=== PATIENT | female | born 1980 | race African-American/Black ===

== ENCOUNTER 2017-03-19 07:54 | Outpatient (CLI) | payer OTHER ==
--- NOTE | 2017-03-19 10:38 | ULT ---
ABDOMINAL ULTRASOUND: History: Abdominal pain. 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 Comparison: CT 03-10-15, abdominal ultrasound 02-22-16 at [facility], as well as ultrasound exami nation performed at [facility] 08-30-15. FINDINGS: Real-time imaging of the upper abdomen demonstrates a normal appearing gallbladder. The common duct is 3 mm. Visualized liver parenchyma is unremarkable. Pancreas is partially obscured. Right and left kidneys are normal in size and not obstructed. Abdominal aorta and IVC regions are unremarkable. There is a hypoechoic area involving the more posterior aspect of the spleen. It measures 2.5 cm in size. This area is different in appearance than it has been on previous ultrasounds. On the [facility] ultrasound there is an approximately 7 mm cyst directly adjacent to an approximately 2.3 x 2 .6 cm echogenic area which was felt to possibly represent scar related to the splenic cyst resection . The density seen on the current study appears to be in the same location as that echogenic area. O n the 08-30-15 ultrasound examination the more cystic portion of this area only measured 1.4 cm in ma ximum dimension. It appears to have slightly increased in size although what may be happening is jono t echogenic area was related to some blood clot which is slowly becoming more cystic in nature. IMPRESSION: 1. Change in character in the hypoechoic area within the spleen probably representing a complex sple jacob cyst. The area was very echogenic on an ultrasound examination done at [facility] but is no w more hypoechoic. I suspect that this may have represented an area of hematoma related to the surgi ying resection of the large splenic cyst and what we are observing is slow lysis of the hematoma whic h is becoming more cystic in nature with time. POS: [facility]
== END 2017-03-19 07:55 | disposition home or self-care (01) ==
LOC: ULT 07:54
PROVIDERS: ATTEND Internal Medicine Gastroenterology
DX: D73.89 Other diseases of spleen (principal); R10.12 Left upper quadrant pain
CPT/HCPCS: 76700

== ENCOUNTER 2017-04-04 08:14 | Outpatient (CLI) | payer OTHER ==
--- NOTE | 2017-04-04 12:47 | CT ---
CT ABDOMEN WITH IV CONTRAST: INDICATIONS: Follow up cyst, status post cyst removal. COMPARISON: Prior CT evaluation, dated 03/10/2015. Comparisons were also made with a prior ultrasound evaluatio n of the abdomen, dated 03/19/2017. FINDINGS: There is a heterogeneously enhancing 8 mm lesion within segment 5 of the right hepatic lobe on image 17 of series 2. This is likely reflective of a hyperenhancing lesion seen on the comparison examin ation of 03/10/2015, measuring 7 mm on image 18 of series 2. This is lightly reflective of a flash filling hemangioma. The previously seen cyst is no longer present. There is some irregularity invo lving the superior pole of the spleen, likely related to a cortical defect from the splenic resectio n site. The pancreas and adrenal glands are normal appearing. The kidneys are normal appearing. No free fluid or enlarged lymph nodes are evident. There is a fat-containing umbilical hernia. No acute osseous abnormality is evident. IMPRESSION: 1. Resolution of the previously seen large superior pole splenic cyst. Slight cortical irregularit y involves the superior pole of the cyst, likely related to the resection site. 2. Partially enhancing hypoechoic lesion within the anterior aspect of the right hepatis lobe withi n segment 5, which likely corresponds to a hyperenhancing lesion seen on 03/10/2015 and is reflectiv e of a hemangioma. This is felt to be stable in size since that exam. 3. Fat-containing umbilical hernia. POS: [facility]
== END 2017-04-04 08:15 | disposition home or self-care (01) ==
LOC: CT 08:14
PROVIDERS: ATTEND Internal Medicine Gastroenterology
DX: D73.89 Other diseases of spleen (principal)
CPT/HCPCS: 74160

== ENCOUNTER 2019-02-05 17:03 | Inpatient (IN) | payer OTHER ==
[2019-02-05] MEDS ORDERED: Betamet Acet/Betamet Na Ph 30 MG/5 ML VIAL ONE (17:41)
[2019-02-05 18:01] VITALS: BMI 39.3
[2019-02-05 18:02] LABS: #Eosinphils 0.1 thou/uL (0.0-0.7); #Lymphocytes 1.6 thou/uL (1.20-3.40); #Monocytes 0.8 thou/uL (0.11-0.59); #Neutrophils 6.4 thou/uL (1.40-6.50); %Basophils 0.5 % (0.0-1.0); %Eosinophils 0.7 % (0.0-10.0); %Lymphocytes 18.1 % (21.0-51.0); %Monocytes 8.5 % (0.0-10.0); %Neutrophils 72.2 % (42.0-75.0); Hemoglobin 13.7 g/dL (12.0-16.0); Mean Corpuscular HGB CONC 34.4 g/dL (32.0-36.0); Mean Corpuscular Hemoglobin 30.3 pg (27.0-31.0); Mean Corpuscular Volume 87.9 fL (78.0-98.0); Mean Platelet Volume 9.5 fL (7.4-10.4); Platelet Count 140 thou/uL (130-400); RBC Distribution Width 13.4 % (11.5-14.5); Red Blood Cell (RBC) Count 4.53 mill/uL (4.20-5.40); White Blood Cell (WBC) Count 8.9 thou/uL (4.8-10.8)
[2019-02-05 18:26] LABS: Uric Acid 5.1 mg/dL (2.6-6.0)
[2019-02-05 18:35] LABS: Creatinine, Urine 36.69 mg/dL (47-110)
[2019-02-05] MEDS ORDERED: Promethazine HCl 25 MG/ML VIAL IM PRN (19:28)
[2019-02-05] MEDS ORDERED: Butorphanol Tartrate 1 MG/ML VIAL SLOW IVP PRN (19:28)
[2019-02-05] MEDS ORDERED: hydrALAZINE 20 MG/ML VIAL SLOW IVP PRN (19:28)
[2019-02-05] MEDS ORDERED: Acetaminophen 500 MG TAB PO PRN (19:28)
[2019-02-05] MEDS ORDERED: Zolpidem Tartrate 5 MG TAB PO PRN (19:28)
[2019-02-05] MEDS ORDERED: Ondansetron PF 4 MG/2 ML Vial IVP PRN (19:28)
[2019-02-05] MEDS ORDERED: Calcium Gluc 4.6 MEQ/10 ML (100 MG/ML) SLOW IVP PRN (19:28)
[2019-02-05 22:41] LABS: Hemoglobin 14.5 g/dL (12.0-16.0); Mean Corpuscular Hemoglobin 30.9 pg (27.0-31.0); Mean Corpuscular Volume 88.3 fL (78.0-98.0); Mean Platelet Volume 9.9 fL (7.4-10.4); Platelet Count 144 thou/uL (130-400); RBC Distribution Width 13.5 % (11.5-14.5); Red Blood Cell (RBC) Count 4.69 mill/uL (4.20-5.40)
[2019-02-05 23:20] LABS: HBSAg Index 0.17 S/CO (0-0.99); Hep B Surf Ag Non-Reactive S/CO (NonReactive); Syphilis Antibody Nonreactive (Nonreactive); Syphilis Antibody Index 0.04 S/CO (<1.00 Non-Reactive)
[2019-02-06 11:59] LABS: #Eosinphils 0.1 thou/uL (0.0-0.7); #Lymphocytes 1.2 thou/uL (1.20-3.40); #Monocytes 0.4 thou/uL (0.11-0.59); #Neutrophils 12.8 thou/uL (1.40-6.50); %Eosinophils 0.5 % (0.0-10.0); %Lymphocytes 8.4 % (21.0-51.0); Mean Corpuscular HGB CONC 35.1 g/dL (32.0-36.0); Mean Corpuscular Hemoglobin 30.9 pg (27.0-31.0); Mean Platelet Volume 9.5 fL (7.4-10.4); Platelet Count 151 thou/uL (130-400); RBC Distribution Width 13.2 % (11.5-14.5); Red Blood Cell (RBC) Count 4.54 mill/uL (4.20-5.40); White Blood Cell (WBC) Count 14.5 thou/uL (4.8-10.8)
[2019-02-06] MEDS ORDERED: Penicillin G Potassium 5 MILL.UNITS in Sodium Chloride 0.9% 100 ML IVPB SCH (13:15)
[2019-02-06] MEDS: Labetalol 100 MG TAB PO SCH ×2 (14:59→22:59)
[2019-02-06] MEDS: Lactated Ringer's 1,000 ML IV SCH ×2 (15:00→23:08)
[2019-02-06] MEDS: Misoprostol 100 MCG TAB VAG SCH ×3 (15:02→21:07)
[2019-02-06] MEDS ORDERED: Penicillin G Potassium 2.5 MILL.UNITS in Sodium Chloride 0.9% 50 ML IVPB SCH (17:00)
[2019-02-06] MEDS: Betamet Acet/Betamet Na Ph 30 MG/5 ML VIAL IM SCH (18:00)
--- NOTE | 2019-02-06 23:11 | PDOC.EVN ---
Event Note - Event Note Event Note: Asked to AROM by Dr. quarles. SVE 1-2/ thick/ vtx remains high, unable to AROM. FHTs stable. Dr. Quarles notified.
[2019-02-07] MEDS ORDERED: NS w/ Oxytocin 10 units 500 ML ONE (01:02)
[2019-02-07] MEDS ORDERED: Penicillin G Potassium 5 MILL.UNITS VIAL ONE (01:02)
--- NOTE | 2019-02-07 01:38 | PDOC.EVN ---
Event Note - Event Note Event Note: SVE= 2-3/70/0 vtx. AROM- copious clear fluid noted. FHTs stable. UCs q 3-4 mins.
[2019-02-07] MEDS ORDERED: Fentanyl 4 mcg/Bup 0.1% Cadd 100 ML ONE (01:43)
[2019-02-07] MEDS ORDERED: Lidocaine 1.5%/Epinephrine 1:200,000 5 ML AMPUL IJ ONE (01:44)
[2019-02-07] MEDS ORDERED: diphenhydrAMINE 50 MG/ML VIAL IVP PRN (02:27)
[2019-02-07] MEDS ORDERED: ePHEDrine/0.9% NaCl/PF SYRINGE 50 mg/10 ml SLOW IVP PRN (02:27)
[2019-02-07] MEDS ORDERED: Ondansetron PF 4 MG/2 ML Vial IVP PRN ×2 (02:27→07:04)
[2019-02-07] MEDS ORDERED: Acetaminophen 325 MG TAB PO PRN (02:27)
[2019-02-07] MEDS ORDERED: Lactated Ringer's 500 ML IV PRN (02:27)
[2019-02-07] MEDS ORDERED: Naloxone HCl 0.4 mg/ml Vial IVP PRN ×2 (02:27)
[2019-02-07] MEDS ORDERED: Promethazine HCl 25 MG/ML VIAL IM PRN (02:27)
[2019-02-07] MEDS ORDERED: Fentanyl 4 mcg/Bupivacaine 0.1% Cassette 100 ML EPIDURAL SCH (02:30)
[2019-02-07] MEDS ORDERED: Communication Order-Pharmacy FS SCH (02:30)
[2019-02-07] MEDS ORDERED: Penicillin G 2.5 MILL.units 50 ML ONE (05:11)
[2019-02-07] MEDS: Lactated Ringer's 1,000 ML IV SCH (05:13)
[2019-02-07] MEDS ORDERED: Lidocaine 1% (PF) 30 ML VIAL ONE (05:50)
[2019-02-07] MEDS ORDERED: NS / Oxytocin 40 units/1000ml 1,000 ML ONE (05:50)
[2019-02-07] MEDS ORDERED: Misoprostol 200 MCG TAB VAG PRN (07:04)
[2019-02-07] MEDS ORDERED: Benzocaine-Menthol 82.5 ML CAN TOP PRN (07:04)
[2019-02-07] MEDS ORDERED: Lanolin Ointment 7 GM TUBE TOP PRN (07:04)
[2019-02-07] MEDS ORDERED: Bisacodyl 10 MG SUPP PR PRN (07:04)
[2019-02-07] MEDS ORDERED: Zolpidem Tartrate 5 MG TAB PO PRN (07:04)
[2019-02-07] MEDS ORDERED: Acetaminophen/Codeine 30-300mg Tablet PO PRN ×2 (07:04)
[2019-02-07] MEDS ORDERED: diphenhydrAMINE 25 MG CAP PO PRN (07:04)
[2019-02-07] MEDS ORDERED: hydrALAZINE 20 MG/ML VIAL SLOW IVP PRN (07:04)
[2019-02-07] MEDS ORDERED: Preparation H Ointment 28 GM TUBE PR PRN (07:04)
[2019-02-07] MEDS ORDERED: Adacel (T-DAP) 0.5 ML SYRINGE IM ONE (07:04)
[2019-02-07] MEDS ORDERED: Milk Of Magnesia 30 ML UDCUP PO PRN (07:04)
[2019-02-07] MEDS ORDERED: NS / Oxytocin 40 units/1000ml 1,000 ML IV SCH (07:15)
[2019-02-07] MEDS ORDERED: Sodium Chloride 0.9% 10 ML ONE (11:39)
[2019-02-07] MEDS: Ibuprofen 800 MG TAB PO SCH ×2 (14:10→21:36)
[2019-02-07] MEDS: Betamet Acet/Betamet Na Ph 30 MG/5 ML VIAL IM SCH (14:12)
[2019-02-07] MEDS: Ferrous Sulfate 325 MG TAB PO SCH ×2 (14:12→16:52)
[2019-02-07] MEDS: Prenatal Vitamin 1 TAB PO SCH (14:13)
[2019-02-07] MEDS: Docusate Calcium (SURFAK) 240 MG CAP PO SCH ×2 (14:13→21:37)
[2019-02-07] MEDS: Labetalol 100 MG TAB PO SCH (16:51)
[2019-02-08] MEDS: Ibuprofen 800 MG TAB PO SCH ×3 (05:26→21:18)
[2019-02-08] MEDS: Ferrous Sulfate 325 MG TAB PO SCH ×2 (09:30→19:27)
[2019-02-08] MEDS: Prenatal Vitamin 1 TAB PO SCH (09:30)
[2019-02-08] MEDS: Docusate Calcium (SURFAK) 240 MG CAP PO SCH ×2 (09:30→21:18)
[2019-02-09] MEDS: Ibuprofen 800 MG TAB PO SCH (06:03)
[2019-02-09 08:05] VITALS: BP 126/59; TEMP 98.3
[2019-02-09] MEDS: Ferrous Sulfate 325 MG TAB PO SCH (16:28)
[2019-02-09] MEDS: Prenatal Vitamin 1 TAB PO SCH (16:28)
[2019-02-09] MEDS: Docusate Calcium (SURFAK) 240 MG CAP PO SCH (16:28)
== END 2019-02-09 13:30 | disposition home or self-care (01) | DRG 807 ==
LOC: L&D/OP 17:03 → L&D 19:30 → 3SE 02-07 10:18
PROVIDERS: ADMIT Obstetrics & Gynecology; ATTEND Obstetrics & Gynecology
PROC: 10E0XZZ Delivery of Products of Conception, External Approach (ICD-10-PCS; principal; 2019-02-07)
PROC: 10907ZC Drainage of Amniotic Fluid, Therapeutic from Products of Conception, Via Natural or Artificial Opening (ICD-10-PCS; 2019-02-07)
PROC: 3E0P7VZ Introduction of Hormone into Female Reproductive, Via Natural or Artificial Opening (ICD-10-PCS; 2019-02-07)
PROC: 3E033VJ Introduction of Other Hormone into Peripheral Vein, Percutaneous Approach (ICD-10-PCS; 2019-02-07)
DX: O14.94 Unspecified pre-eclampsia, complicating childbirth (principal); Z37.0 Single live birth; O60.14X0 Preterm labor third trimester with preterm delivery third trimester, not applicable or unspecified; O70.1 Second degree perineal laceration during delivery; Z3A.36 36 weeks gestation of pregnancy
CPT/HCPCS: 36415; 51702; 82570; 83615; 84156; 84450; 84460; 84550; 85025; 86780; 86850; 86900; 86901; 87340; 99285; J0702; J2001; J2540; J2590; J3490

== ENCOUNTER 2019-02-17 14:55 | Outpatient (CLI) | payer OTHER ==
[2019-02-17 15:26] LABS: ALT (SGPT) 26 U/L (8-55); AST (SGOT) 16 U/L (5-34); Albumin 3.7 g/dL (3.5-5.0); Alkaline Phosphatase 160 U/L (40-150); Anion Gap 12 mmol/L (10-20); BUN (Urea Nitrogen) 9 mg/dL (7.0-18.7); Bilirubin, Total 0.9 mg/dL (0.2-1.2); Calc. Creatinine Clearance 0 mL/min (70-130); Calcium 9.1 mg/dL (7.8-10.44); Carbon Dioxide 25 mmol/L (22-29); Chloride 108 mmol/L (98-107); Estimated GFR-MDRD Greater than 90; Globulin 3.1 g/dL (2.4-3.5); Glucose 65 mg/dL (70-105); Potassium 3.8 mmol/L (3.5-5.1); Protein, Total 6.8 g/dL (6.0-8.3); Sodium 141 mmol/L (136-145)
[2019-02-17 15:41] LABS: Anisocytosis SLIGHT = 6-15 cells (100X) (0-5/hpf); Band 1 % (5-11); Eosinophils 1 % (0-10); Hemoglobin 13.7 g/dL (12.0-16.0); Lymphocytes 29 % (21-51); MDiff Complete? YES; Mean Corpuscular HGB CONC 31.7 g/dL (32.0-36.0); Mean Corpuscular Hemoglobin 29.1 pg (27.0-31.0); Mean Platelet Volume 7.8 fL (7.4-10.4); Monocytes 11 % (0-10); Neutrophil 53 % (42-75); Nucleated RBC 1 % (0); Platelet Count 249 thou/uL (130-400); Platelet Morphology Comment Appears Adequate; RBC Distribution Width 14.6 % (11.5-14.5); Reactive Lymphocytes 3 % (0-10); White Blood Cell (WBC) Count 5.5 thou/uL (4.8-10.8)
--- NOTE | 2019-02-17 15:42 | RAD ---
EXAM: Two views chest PROVIDED CLINICAL HISTORY: Dyspnea, unspecified type. Patient is been having shortness of breath for 6 months. COMPARISON: None FINDINGS: Cardiac silhouette is at the upper limits of normal in size. The pulmonary vasculature is within norm al limits. The lungs are clear. The osseous structures have a normal appearance. IMPRESSION: No acute cardiopulmonary process.
[2019-02-17 16:48] LABS: Iron 145 ug/dL (50-170)
== END 2019-02-17 14:56 | disposition home or self-care (01) ==
LOC: SCSRAD 14:55 → EDSTATUS 15:18
PROVIDERS: ATTEND Family Medicine
DX: R06.00 Dyspnea, unspecified (principal)
CPT/HCPCS: 36415; 71046; 80053; 83540; 85025

== ENCOUNTER 2019-02-24 10:22 | Outpatient (CLI) | payer OTHER ==
--- NOTE | 2019-02-24 11:27 | CT ---
CT of the thorax without IV contrast INDICATION: High-resolution CT evaluation for shortness of breath TECHNIQUE: Multiple noncontrast CT images were obtained of the thorax utilizing a high-resolution CT protocol with patient in both the supine and prone position. COMPARISON: CT of the abdomen and pelvis dated March 10, 2015 and April 04, 2017 FINDINGS: LUNGS: Clear without evidence of bronchiectasis, intralobular or interlobular septal thickening. No suspicious airspace opacity demonstrated. Mediastinum: Normal appearing. Additional findings: Hypodense lesion is present within the right hepatic lobe measuring 1.9 cm which likely corresponds to an 8 mm hypodense lesion seen within segment 5 of the right hepatic lobe on the comparison CT examinations. This has grown in the interval. Osseous structures: No definite acute osseous abnormality is evident. IMPRESSION: 1. No evidence of bronchiectasis, peripheral interstitial septal thickening or suspicious airspace op acity. 2. Enlarging right hepatic lobe hypodense lesion. Further characterization with a CT of the abdomen u tilizing hemangioma protocol is recommended.
== END 2019-02-24 10:23 | disposition home or self-care (01) ==
LOC: SCSCT 10:22
PROVIDERS: ATTEND Family Medicine
DX: R06.02 Shortness of breath (principal); K76.9 Liver disease, unspecified; R16.0 Hepatomegaly, not elsewhere classified
CPT/HCPCS: 71250

== ENCOUNTER 2019-03-04 13:50 | Outpatient (CLI) | payer OTHER ==
--- NOTE | 2019-03-04 16:01 | MRI ---
MRI ABDOMEN WITH AND WITHOUT CONTRAST: HISTORY: R16.0, liver mass. COMPARISON: CT abdomen and pelvis 2017. FINDINGS: No pericardial effusion. No pleural effusion. No significant hepatic steatosis. Corresponding to the area of interest hepatic segment 5 of the mass with peripheral centripetal enhan cement. This has imaging characteristics of a benign hemangioma. This is 2.1 cm in size. No other enhancing mass of the liver is appreciated. Pancreas, spleen, adrenal glands unremarkable. No hydronephrosis. No abnormal renal enhancing mass. No retroperitoneal periaortic adenopathy. No dilated loops of bowel. There appears to be a ventral hernia containing fat. IMPRESSION: 1. Corresponding to the abnormality in hepatic segment 5 is a benign hemangioma. 2. Incompletely evaluated ventral hernia containing fat. 3. Areas of susceptibility near the spleen. Likely postsurgical in nature. POS: OFF
== END 2019-03-04 13:51 | disposition home or self-care (01) ==
LOC: SCSMRI 13:50
PROVIDERS: ATTEND Family Medicine
DX: R16.0 Hepatomegaly, not elsewhere classified (principal); D18.03 Hemangioma of intra-abdominal structures
CPT/HCPCS: 74183

== ENCOUNTER 2019-03-16 10:12 | Day surgery (SDC) | payer OTHER ==
[2019-03-15 10:57] VITALS: BMI 35.4
[2019-03-16] MEDS ORDERED: Bupivacaine/Epinephrine 0.25% 30 ML VIAL ONE (11:13)
[2019-03-16] MEDS ORDERED: HYDROmorphone 0.5 MG/0.5 ML SYRINGE ONE ×2 (11:17→12:47)
[2019-03-16] MEDS ORDERED: Lidocaine 2% Jelly 5 ML TUBE ONE (11:17)
[2019-03-16] MEDS ORDERED: Midazolam HCl 2 mg/2 ml Vial ONE ×2 (11:17→11:20)
[2019-03-16] MEDS ORDERED: Fentanyl 100 MCG/2 ML VIAL ONE ×3 (11:17→14:46)
[2019-03-16] MEDS ORDERED: Ondansetron PF 4 MG/2 ML Vial ONE ×2 (14:07→15:39)
[2019-03-16] MEDS ORDERED: Metoprolol Tartrate 5 MG/5 ML VIAL ONE (14:29)
[2019-03-16] MEDS ORDERED: hydrALAZINE 20 MG/ML VIAL ONE ×2 (15:09→17:26)
[2019-03-16] MEDS ORDERED: Promethazine HCl 25 MG/ML VIAL ONE (15:26)
[2019-03-16] MEDS ORDERED: PROPOFOL 200 MG/20 ML VIAL ONE (15:39)
[2019-03-16] MEDS ORDERED: Glycopyrrolate 0.2 MG/ML 5 ML SYRINGE ONE (15:39)
[2019-03-16] MEDS ORDERED: Dexamethasone 20 MG/5 ML VIAL ONE (15:39)
[2019-03-16] MEDS ORDERED: Lidocaine 1% PF 5 ML VIAL ONE (15:39)
[2019-03-16] MEDS ORDERED: Rocuronium Bromide 10 MG/ML (10ML VIAL) ONE (15:39)
--- NOTE | 2019-03-17 10:20 | OP ---
DATE OF PROCEDURE: 03/16/2019 POSTOPERATIVE DIAGNOSIS: Ventral hernia. POSTOPERATIVE DIAGNOSIS: Ventral hernia. PROCEDURE PERFORMED: Da Yudith laparoscopic ventral hernia repair with mesh, Ventralex ST 8 cm mesh. ANESTHESIA: General. ESTIMATED BLOOD LOSS: Minimal. COMPLICATIONS: None. SPECIMEN: None. FINDINGS: Ventral hernia. TECHNIQUE: The patient was taken to the operating room and laid supine on the operating room table. After general anesthetic was obtained, a Snyder was placed. The abdomen was prepped and draped in a sterile fashion. Left subcostal 5 mm Optiview trocar was placed in usual fashion. High-flow pneumoperitoneum was obtained. Left and right abdominal 8 mm robot trocars were placed. The 5 mm subcostal port was switched out to an 11 mm balloon port. All ports were docked to the robot. Surgeon goes to the console. The peritoneum was taken down and the preperitoneal fat was dissected out of the ventral hernia peritoneum was reflected off exposing the posterior sheath, 0 V-Loc sutures used to close the defect primarily. An [address] mesh was brought into the sterile field and the needle above was used to hold the mesh in place. 2-0 V-Loc suture was then used to suture the mesh to the posterior fascia circumferentially. All needles were removed from the abdomen and accounted for. There was no ongoing bleeding. There was no injury to any intraabdominal structures. All port sites were infiltrated using local anesthetic. All ports were removed under camera visualization. Pneumoperitoneum was let down. A 4-0 Monocryl Dermabond to close all skin incisions. The patient was sent to Recovery in stable condition. All instrument counts, needle counts and lap counts were correct. Job ID: [id number]
== END 2019-03-16 18:15 | disposition home or self-care (01) ==
LOC: SDC 10:12
PROVIDERS: ATTEND Surgery
PROC: 0WUF4JZ Supplement Abdominal Wall with Synthetic Substitute, Percutaneous Endoscopic Approach (ICD-10-PCS; principal; 2019-03-16)
DX: K43.9 Ventral hernia without obstruction or gangrene (principal); Z79.899 Other long term (current) drug therapy; Z91.013 Allergy to seafood
CPT/HCPCS: C1781; J0360; J0690; J1100; J1170; J2001; J2250; J2405; J2550; J2704; J3010